=== PATIENT | female | born 1925 | race Caucasian/White ===

== ENCOUNTER 2016-09-22 12:18 | Outpatient (CLI) | payer OTHER, MEDICARE ==
--- NOTE | 2016-09-22 15:45 | DIAGNOSTIC IMAGING REPORT ---
PROCEDURE: CT ABD/PELVIS WITH CONTRAST CLINICAL INDICATION: ABDOMINAL DISTENTION TECHNIQUE: 60 ml of Isovue 300 were injected intravenously and axial images were obtained of the entire abdomen and pelvis with sagittal and coronal reformations. COMPARISON: None. FINDINGS: ABDOMEN: Lung base are clear. Mild cardiomegaly. 1.4 cm left hepatic lobe cyst. There are two additional sub 5 mm hypoenhancing lesions in the liver. Gallbladder, pancreas, spleen, adrenal glands and the left kidney are normal. Right renal cysts. Moderate atherosclerosis of the aorta. Nonspecific bowel gas pattern. PELVIS: Normal appendix. 2 cm left ovarian cyst. Uterus and bladder are unremarkable. No pelvic mass, inflammatory changes or free fluid. Mild scoliosis and moderate degenerative changes of the spine. Bilateral hip degenerative changes. IMPRESSION: 1. Hepatic cysts. 2. 2 cm left ovarian cyst All CT scans at this facility use dose modulation, iterative reconstruction, and/or weight-based dosing when appropriate to reduce radiation dose to as low as reasonably achievable.
== END 2016-09-22 23:00 ==
LOC: CT SRH 12:18
DX: R14.0 Abdominal distension (gaseous) (principal); K76.89 Other specified diseases of liver; N83.202 Unspecified ovarian cyst, left side